=== PATIENT | female | born 1975 | race Caucasian/White ===

== ENCOUNTER 2018-11-02 00:25 | Emergency (ER) | payer SELFPAY ==
[2018-11-02 00:56] VITALS: TEMP 97.5; BMI 35.4
--- NOTE | 2018-11-02 01:28 | PDOC ---
History of Present Illness - General Chief Complaint: Lightheaded Stated Complaint: DIZZINESS,SOB Time Seen by Provider: 11/02/18 00:57 - History of Present Illness Initial Comments: 11/02/18 03:20 43F with no pmh presents to the ED for upper left sided abdominal pain since noon today. The pain is 5/10, goes through the back and is constant, not exacerbated. She also complains of some mild nausea, tried to make herself vomit but couldn't. Never had that kind of pain before. Past History - Past Medical History Allergies/Adverse Reactions: Allergies Allergy/AdvReac Type Severity Reaction Status Date / Time No Known Drug Allergies Allergy Verified 11/11/12 08:03 Home Medications: Ambulatory Orders Acetaminophen [Tylenol .Regular Strength -] 325 mg PO Q3H PRN #2 tablet Benzocaine [Americaine 20% [place] -] 1 spray TP PRN PRN #1 spraybtl 11/15/12 Ferrous Sulfate [Feosol] 325 mg PO BID #0 ud 11/15/12 Ibuprofen [Motrin -] 600 mg PO Q4H PRN #1 tablet 11/15/12 Vitamins (Sjr) - 1 tab PO DAILY #1 tablet 11/15/12 Witch Dorinda 50% (Tucks) [Tucks Pads -] 1 pad TP PRN PRN #1 pad 11/15/12 Asthma: No Cancer: No Cardiac Disorders: No COPD: No Diabetes: No HTN: No Seizures: No Thyroid Disease: No - Suicide/Smoking/Psychosocial Hx Smoking History: Never smoked Have you smoked in the past 12 months: No Hx Alcohol Use: No Drug/Substance Use Hx: No Hx Substance Use Treatment: No Review of Systems - Review of Systems Able to Perform ROS?: Yes Is the patient limited Danish proficient: No Constitutional: No: Symptoms Reported HEENTM: No: Symptoms Reported Respiratory: No: Symptoms reported Cardiac (ROS): No: Symptoms Reported ABD/GI: Yes: See HPI : No: Symptoms Reported Musculoskeletal: No: Symptoms Reported Integumentary: No: Symptoms Reported Neurological: No: Symptoms reported All Other Systems: Reviewed and Negative *Physical Exam - Vital Signs Last Vital Signs Temp Pulse Resp BP Pulse Ox 97.5 F L 55 L 19 105/39 L 98 11/02/18 00:54 11/02/18 00:54 11/02/18 00:54 11/02/18 00:54 11/02/18 00:54 - Physical Exam General Appearance: Yes: Nourished, Appropriately Dressed. No: Apparent Distress HEENT: positive: EOMI, CORKY, Normal ENT Inspection Neck: negative: Tender Respiratory/Chest: positive: Lungs Clear, Normal Breath Sounds. negative: Chest Tender, Respiratory Distress Cardiovascular: positive: Regular Rhythm, S1, S2, Bradycardia Gastrointestinal/Abdominal: positive: Normal Bowel Sounds, Tender (ulq), Flat, Soft, Protuberent. negative: Distended, Rebound, Tenderness, Hernia, Mass Musculoskeletal: positive: Normal Inspection. negative: CVA Tenderness Extremity: positive: Normal Capillary Refill, Normal Inspection, Normal Range of Motion Integumentary: positive: Normal Color, Dry, Warm Neurologic: positive: Fully Oriented, Alert, Normal Mood/Affect, Normal Response , Motor Strength 5/5 Moderate Sedation - Procedure Monitoring Vital Signs: Procedure Monitoring Vital Signs Temperature 97.5 F L 11/02/18 00:54 Pulse Rate 55 L 11/02/18 00:54 Respiratory Rate 19 11/02/18 00:54 Blood Pressure 105/39 L 11/02/18 00:54 O2 Sat by Pulse Oximetry (%) 98 11/02/18 00:54 ED Treatment Course - LABORATORY CBC & Chemistry Diagram: 11/02/18 01:40 11/02/18 01:40 Medical Decision Making - Medical Decision Making 11/02/18 03:37 43F with ULQ pain and nausea since noon today. Gallstones vs constipation vs GA vs pancreatitis vs renal stones US negative for stones. All labs WNL Lipase pending. 11/02/18 05:47 Ct negative for renal stones. Patient feeling better. ok to be dc with PCP follow up *DC/Admit/Observation/Transfer Diagnosis at time of Disposition: Left upper quadrant abdominal tenderness - Discharge Dispostion Disposition: HOME Condition at time of disposition: Improved Decision to Admit order: No - Referrals - Patient Instructions Printed Discharge Instructions: DI for Abdominal Pain-Adult Additional Instructions: Come back to the emergency department for any new, worsening or concerning symptoms. Follow up with your primary care provider within the next 4 days. - Post Discharge Activity
[2018-11-02 02:01] LABS: BASO % 0.7 % (0-2.0); EOS % 1.6 % (0-4.5); HEMATOCRIT 34.7 % (32.4-45.2); HEMOGLOBIN 12.1 GM/dL (10.7-15.3); LYMPH % 23.3 % (8-40); MCH 31.5 pg (25.7-33.7); MCHC 34.8 g/dl (32.0-36.0); MEAN CELL VOLUME 90.4 fl (80-96); MEAN PLT VOLUME 7.6 fl (7.5-11.1); MONO % 6.1 % (3.8-10.2); NEUT % 68.3 % (42.8-82.8); PLATELET COUNT 333 K/MM3 (134-434); RBC 3.84 M/mm3 (3.60-5.2); RDW 13.9 % (11.6-15.6); WHITE BLOOD COUNT 9.6 K/mm3 (4.0-10.0)
[2018-11-02 02:34] LABS: ALBUMIN 3.5 g/dl (3.4-5.0); ALK PHOS 70 U/L (45-117); ANION GAP 7 MMOL/L (8-16); BILIRUBIN,TOTAL 0.2 mg/dL (0.2-1); BLOOD UREA NITROGEN 12 mg/dL (7-18); CALCIUM 8.2 mg/dL (8.5-10.1); CHLORIDE 106 mmol/L (98-107); CO2 26 mmol/L (21-32); CREATININE 0.7 mg/dL (0.55-1.3); GLUCOSE,RANDOM 95 mg/dL (74-106); POTASSIUM 4.5 mmol/L (3.5-5.1); SGOT/AST 23 U/L (15-37); SGPT/ALT 36 U/L (13-61); SODIUM 138 mmol/L (136-145); TOT PROT 7.3 g/dl (6.4-8.2)
--- NOTE | 2018-11-02 03:06 | PDOC ---
Attending Attestation - Resident Resident Name: Trino Briceno - ED Attending Attestation I have performed the following: I have examined & evaluated the patient, The case was reviewed & discussed with the resident, I agree w/resident's findings & plan, Exceptions are as noted - HPI HPI: 11/02/18 04:20 Ms Whittington is a 43 yo F who Presents emergency department with a complaint of abdominal pain, lightheadedness. Her symptoms began while in route to work today at approximately 11:30 AM. She noted sudden onset of left-sided abdominal pain which causes her to be dizzy , feel faint, feel nauseous. Since then her pain has been intermittent. No associated fevers or chills. Patient reports some back pain but says is midline. Prior episodes like this. No trauma to the area. Patient denies dysuria, gross hematuria. She points to the left upper abdomen as painful She had an IUD LMP several months ago Pt is currently sexually active with a single partner, last time 6 weeks ago, no discharge or pelvic pain 11/02/18 05:38 11/02/18 22:56 - Physicial Exam PE: 11/02/18 04:25 GENERAL: The patient is in no acute distress, resting in bed. HEAD: Normal EYES: PERRLA, EOMI, sclera anicteric, conjunctiva clear. ENT: Ears normal, nares patent, oropharynx clear without exudates. Moist mucous membranes. NECK: Normal range of motion, supple LUNGS: Breath sounds equal, clear to auscultation bilaterally. No wheezes, and no crackles. HEART:Regular rate and rhythm, normal S1 and S2 without murmur, rub or gallop. ABDOMEN: Soft, left sided abdominal tenderness, no abd distention, no CVA tenderness EXTREMITIES: Normal range of motion, no edema. NEUROLOGICAL: Cranial nerves II through XII grossly intact. Normal speech. No focal neurological deficits. MUSCULOSKELETAL: Back non-tender to palpation SKIN: Warm, Dry, normal turgor, no rashes or lesions noted. - Medical Decision Making EKG - sinus bradycardia rate of 51 axis nml, no st elevation, t waves upright, twave inversion aVL (no old EKG for comparison) 11/02/18 04:27 Laboratory Tests 11/02/18 11/02/18 11/02/18 01:40 01:40 04:00 WBC 9.6 Hgb 12.1 Hct 34.7 D Plt Count 333 D BUN 12 Creatinine 0.7 Troponin I 0.04 Urine Blood 1+ H Urine Nitrite Negative Ur Leukocyte Esterase 1+ H Micro on UA pending 11/02/18 04:47 Laboratory Tests 11/02/18 04:00 Urine WBC (Auto) 9 Urine RBC (Auto) 8 Ur Epithelial Cells Few Urine Bacteria Rare Will send for spiral CT 11/02/18 05:38 CT: Rectum: Normal Bladder: Normal The inferior thorax: Normal General: Skeletal: Normal Abdominal wall: Normal IMPRESSION: No acute findings 11/02/18 05:39 Pt is resting comfortably Pt presentation is a bit unclear I have had a eyak salvadorean speaking nurse speak with this patient There are no changes to the history previously recorded Spiral CT negative Will repeat vital signs Will discharge to home Clinical Impression: Abdominal pain, initial presentation 11/02/18 22:54
[2018-11-02 03:19] VITALS: BP 107/42; PULSE 65
[2018-11-02 04:14] LABS: URINE APPEARANCE SLCLOUDY; URINE BILIRUBIN NEGATIVE (<2.0 mg/dL); URINE COLOR YELLOW; URINE GLUCOSE (UA) NEGATIVE (NEGATIVE); URINE KETONE NEGATIVE (NEGATIVE); URINE LEUK ESTERASE 1+ (NEGATIVE); URINE NITRITE NEGATIVE (NEGATIVE); URINE PROTEIN NEGATIVE (NEGATIVE); URINE UROBILINOGEN NEGATIVE mg/dL (0.2-1.0)
[2018-11-02 04:28] LABS: EPI CELLS FEW /HPF (FEW); URINE BACTERIA RARE /hpf (NONE SEEN); URINE HYALINE CAST 3 /lpf; URINE MUCUS MANY
--- NOTE | 2018-11-02 17:01 | EKG ---
Test Reason : Blood Pressure : / mmHG Vent. Rate : 051 BPM Atrial Rate : 051 BPM P-R Int : 180 ms QRS Dur : 084 ms QT Int : 460 ms P-R-T Axes : 041 050 061 degrees QTc Int : 423 ms SINUS BRADYCARDIA OTHERWISE NORMAL ECG Confirmed by MD LINDSAY, ERNESTO ([id number]) on 11/02/2018 5:01:23 PM Referred By: Confirmed By:ERNESTO MONTOYA MD
== END 2018-11-02 06:15 | disposition home or self-care (01) ==
LOC: JER 00:25
DX: R10.812 Left upper quadrant abdominal tenderness (principal)
CPT/HCPCS: 36415; 74176; 76705-TC; 80053; 81003; 81015; 83690; 84484; 84703; 85025; 87086; 93005; 93010; 99282-25

== ENCOUNTER 2019-09-01 13:45 | Emergency (ER) | payer OTHER ==
[2019-09-01 13:54] VITALS: BP 102/56; PULSE 62; TEMP 97.8; BMI 106.3
--- NOTE | 2019-09-01 14:36 | PDOC ---
History of Present Illness - General History Source: Patient Exam Limitations: No Limitations - History of Present Illness Initial Comments: 09/01/19 14:36 44 yo F w/ a h/o HLD (not on meds) comes in c/o sudden onset of L sided neck pain with L upper extremity pain, numbness/tingling/weakness since yesterday with shortness of breath with ambulation. She has also had L sided chest pain with radiates to the back , L sided facial numbness since Thursday. No slurred speech, no lower extremity weakness, no other complaints today, no prior h/o similar symptoms. 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 No fever/chills, no NVD, no change in appetite/urination, no prior h/o similar symptoms. Denies recent fall/trauma. (+) has a PMD, last saw him 1 yr ago and was told she had high cholesterol but not on meds. Denies h/o PE/DVT, no smoking, no OCP use, no recent surgery, no recent prolonged period of immobilization. no h/o malignancy. no hemoptysis <Katie Hines - Last Filed: 09/01/19 16:05> <Rosa Cabrera - Last Filed: 09/01/19 17:36> - General Chief Complaint: Pain, Acute Stated Complaint: SHOULDER/ARM PAIN Time Seen by Provider: 09/01/19 14:15 Past History - Past Medical History Asthma: No Cancer: No Cardiac Disorders: No COPD: No Diabetes: No HTN: No Seizures: No Thyroid Disease: No - Psycho Social/Smoking Cessation Hx Smoking History: Never smoked Have you smoked in the past 12 months: No Information on smoking cessation initiated: No Hx Alcohol Use: No Drug/Substance Use Hx: No Hx Substance Use Treatment: No <Katie Hines - Last Filed: 09/01/19 16:05> <Rosa Cabrera - Last Filed: 09/01/19 17:36> - Past Medical History Allergies/Adverse Reactions: Allergies Allergy/AdvReac Type Severity Reaction Status Date / Time No Known Drug Allergies Allergy Verified 11/11/12 08:03 Home Medications: Ambulatory Orders Methocarbamol [Robaxin-750] 1,500 mg PO Q6H PRN #24 tablet 09/01/19 Review of Systems - Review of Systems Able to Perform ROS?: Yes Constitutional: No: Chills, Fever, Malaise, Night Sweats HEENTM: No: Eye Pain, Recent change in vision, Throat Pain Respiratory: Yes: Shortness of Breath. No: Cough Cardiac (ROS): Yes: Chest Pain. No: Palpitations, Chest Tightness ABD/GI: No: Diarrhea, Nausea, Vomiting, Abdominal cramping : No: Dysuria, Hematuria Musculoskeletal: No: Back Pain Integumentary: No: Rash Neurological: Yes: Numbness. No: Headache, Dizziness Psychiatric: No: Change in Appetite Endocrine: No: Unexplained Weight Loss <DonnyElliKatie - Last Filed: 09/01/19 16:05> *Physical Exam - Vital Signs Last Vital Signs Temp Pulse Resp BP Pulse Ox 97.8 F 62 16 102/56 L 97 09/01/19 13:50 09/01/19 13:50 09/01/19 13:50 09/01/19 13:50 09/01/19 13:50 - Physical Exam General Appearance: Yes: Nourished. No: Apparent Distress HEENT: positive: CORKY, Normal ENT Inspection, Normal Voice. negative: Pale Conjunctivae, Scleral Icterus (R), Scleral Icterus (L), TM Bulging, TM Dull, TM Erythema, Lesions (no vesicles on TMs b/l) Neck: positive: Supple. negative: Decreased range of motion, Tender midline ((+ )L paraspinal muscular tenderness. NO skin changes) Respiratory/Chest: positive: Chest Tender (mid-L parasternal), Lungs Clear, Normal Breath Sounds. negative: Respiratory Distress, Accessory Muscle Use Cardiovascular: positive: Regular Rhythm, Regular Rate Comments:: 09/01/19 14:52 Neuro exam: A+Ox3 (person, place, time) Visual ge: full to confrontation. Pupils: equal, round, and reactive to light. EOM: intact and smooth pursuit. No nystagmus. Sensation: subjective numbess L side face along V1, V2, V3 Facial strength: muscles of mastication, facial expression, shoulder shrug, and head turn normal. Hearing: grossly intact b/l Mouth: tongue protrudes midline and moves Left/Right equal b/l. Uvula rises symmetrically. Motor: L hand weaker health practice manager than RUE, otherwise 5/.5 strength upper arm, forearm and ower extremities. Sensation: light touch and pinprick WNL upper and lower extremities Cerebellum: [id number] normal without dysmetria or intention tremor. [id number] wnl. No dysdiadodyskinesia. Gait: unassisted, steady, Romberg negative. No atalgia, difficulty in ambulation or ataxia. 09/01/19 14:57 Gastrointestinal/Abdominal: positive: Normal Bowel Sounds, Soft. negative: Tender Musculoskeletal: positive: Normal Inspection. negative: CVA Tenderness, Decreased Range of Motion Extremity: positive: Normal Capillary Refill, Normal Inspection, Normal Range of Motion, Tender (L trapezius muscles). negative: Delayed Capillary Refill, Pedal Edema, Swelling, Calf Tenderness, Erythema Integumentary: positive: Normal Color, Dry. negative: Jaundice, Rash <Katie Hines - Last Filed: 09/01/19 16:05> - Vital Signs Last Vital Signs Temp Pulse Resp BP Pulse Ox 97.8 F 62 16 102/56 L 99 09/01/19 13:50 09/01/19 13:50 09/01/19 13:50 09/01/19 13:50 09/01/19 14:59 <Rosa Cabrera - Last Filed: 09/01/19 17:36> Heart Score/ECG Review - History History: Slightly suspicious - Age Age: </= 47 - Risk Factors Risk Factors Heart Score: Yes Hx Hypercholesterolemia Based on the list above the patient has:: 1-2 risk factors <Katie Hines - Last Filed: 09/01/19 16:05> ED Treatment Course - LABORATORY CBC & Chemistry Diagram: 09/01/19 15:17 09/01/19 15:17 <Katie Hines - Last Filed: 09/01/19 16:05> - LABORATORY CBC & Chemistry Diagram: 09/01/19 15:17 09/01/19 15:17 - ADDITIONAL ORDERS Additional order review: Laboratory Results 09/01/19 09/01/19 09/01/19 15:27 15:17 15:17 Sodium 138 Potassium 4.2 Chloride 104 Carbon Dioxide 26 Anion Gap 7 L BUN 17.9 Creatinine 0.7 Est GFR (CKD-EPI)AfAm 123.86 Est GFR (CKD-EPI)NonAf 106.87 POC Glucometer Random Glucose 88 Calcium 8.9 Phosphorus 4.3 Magnesium 2.2 Total Bilirubin 0.3 AST 41 H ALT 71 H Alkaline Phosphatase 73 Creatine Kinase 187 Troponin I < 0.02 Total Protein 7.5 Albumin 3.8 Lipase 124 Beta HCG, Quant < 1.0 Urine HCG, Qual Negative 09/01/19 14:57 Sodium Potassium Chloride Carbon Dioxide Anion Gap BUN Creatinine Est GFR (CKD-EPI)AfAm Est GFR (CKD-EPI)NonAf POC Glucometer 86 Random Glucose Calcium Phosphorus Magnesium Total Bilirubin AST ALT Alkaline Phosphatase Creatine Kinase Troponin I Total Protein Albumin Lipase Beta HCG, Quant Urine HCG, Qual 09/01/19 09/01/19 15:17 14:57 RBC 3.86 MCV 90.7 MCHC 34.2 RDW 13.9 MPV 7.8 Neutrophils % 66.9 Lymphocytes % 24.4 Monocytes % 6.3 Eosinophils % 1.7 Basophils % 0.7 POC Glucometer 86 - Medications Given in the ED: ED Medications Discontinued Medications Generic Name Dose Route Start Last Admin Trade Name Freq PRN Reason Stop Dose Admin Ibuprofen 600 mg 09/01/19 15:06 09/01/19 15:22 Motrin - PO 09/01/19 15:07 600 mg ONCE ONE Administration Methocarbamol 1,000 mg 09/01/19 15:07 09/01/19 15:22 Robaxin - PO 09/01/19 15:08 1,000 mg ONCE ONE Administration <Rosa Cabrera - Last Filed: 09/01/19 17:36> Medical Decision Making - Medical Decision Making 09/01/19 14:57 44 yo F w/ HLD p/w 6 days of L sided chest pain (reproducible), 2 days of L arm numbness/pain, L face numbness with dyspnea on exertion. R/O radiculopathy, neuropathic pain. WIll also do a cardiac work up. Will do an EKG, line and lab, check cardiac enzymes, CXR, give motrin, robaxin and reassess 09/01/19 15:57 Change of shift, care of patient signed over to MAT Yarbrough who will follow up labs, CXR, reassess and decide on dispo plan Case discussed with Dr. Cabrera. 09/01/19 16:05 <Katie Hines - Last Filed: 09/01/19 16:05> - Medical Decision Making 09/01/19 15:59 The patient was seen and evaluated in conjunction with midlevel provider under my direct supervision, ancillary studies were reviewed. I agree with the plan as outlined MAT Hines. HPI, workup/dispo as outlined. VS reviewed, wnl. EKG is sinus rhythm at 68 bpm, no ST T wave derangements. labs unremarkable, neg trop. neuro intact meds given, analgesia. anticipate discharge, pcp followup, return precautions <Rosa Cabrera - Last Filed: 09/01/19 17:36> Discharge - Discharge Information Problems reviewed: Yes <Katie Hines - Last Filed: 09/01/19 16:05> <Rosa Cabrera - Last Filed: 09/01/19 17:36> - Discharge Information Clinical Impression/Diagnosis: Chest pain Qualifiers: Chest pain type: unspecified Qualified Code(s): R07.9 - Chest pain, unspecified Condition: Improved Disposition: HOME - Additional Discharge Information Prescriptions: Methocarbamol [Robaxin-750] 1,500 mg PO Q6H PRN #24 tablet PRN Reason: Muscle Spasms - Patient Discharge Instructions Patient Printed Discharge Instructions: DI for Chest Pain Additional Instructions: Thank you for choosing [facility]. It was a pleasure taking care of you. You may take Motrin 600 mg every 6 hours by mouth as needed for mild to moderate pain. Take Motrin with food. Take Robaxin as needed for muscle spams. This medication can also make you drowsy so please be cautious with driving or performing heavy physical work. You may also try warm compresses Please follow-up with your doctor in 2 days for further evaluation Return to the Emergency Department if your symptoms worsen or persist or have other concerning symptoms. Andres por elegir el [facility]. Fue un placer cuidar de ti. Puede joanne Motrin 600 mg cada 6 horas por va oral segn sea necesario para el dolor leve a moderado. Jackie Motrin con comida. [place] Robaxin segn sea necesario para los espasmos musculares. Demi medicamento tambin puede causar somnolencia, as que tenga cuidado al conducir o realizar trabajos fsicos pesados. Tambin puedes probar compresas calientes Hola un seguimiento con davis mdico en 2 beltre para ava evaluacin adicional. Regrese al departamento de emergencias si monica sntomas empeoran o persisten o si tiene otros sntomas preocupantes. Print Language: SINHALA
[2019-09-01] MEDS ORDERED: IBUPROFEN 600 MG TABLET (FP) PO ONE ×2 (15:06→15:18)
[2019-09-01] MEDS ORDERED: METHOCARBAMOL 500 MG TABLET PO ONE (15:07)
[2019-09-01] MEDS ORDERED: METHOCARBAMOL 500 MG TABLET ONE (15:18)
[2019-09-01 15:32] LABS: BASO % 0.7 % (0-2.0); EOS % 1.7 % (0-4.5); LYMPH % 24.4 % (8-40); MCHC 34.2 g/dl (32.0-36.0); MEAN CELL VOLUME 90.7 fl (80-96); MEAN PLT VOLUME 7.8 fl (7.5-11.1); MONO % 6.3 % (3.8-10.2); NEUT % 66.9 % (42.8-82.8); PLATELET COUNT 315 K/MM3 (134-434); RBC 3.86 M/mm3 (3.60-5.2); RDW 13.9 % (11.6-15.6); WHITE BLOOD COUNT 9.5 K/mm3 (4.0-10.0)
[2019-09-01 15:57] LABS: ALBUMIN 3.8 g/dl (3.4-5.0); ALK PHOS 73 U/L (45-117); ANION GAP 7 MMOL/L (8-16); BILIRUBIN,TOTAL 0.3 mg/dL (0.2-1); BLOOD UREA NITROGEN 17.9 mg/dL (7-18); CALCIUM 8.9 mg/dL (8.5-10.1); CHLORIDE 104 mmol/L (98-107); CO2 26 mmol/L (21-32); CREATININE 0.7 mg/dL (0.55-1.3); GLUCOSE,RANDOM 88 mg/dL (74-106); LIPASE 124 U/L (73-393); MAGNESIUM 2.2 mg/dL (1.8-2.4); PHOSPHOROUS 4.3 mg/dL (2.5-4.9); POTASSIUM 4.2 mmol/L (3.5-5.1); SGOT/AST 41 U/L (15-37); SGPT/ALT 71 U/L (13-61); SODIUM 138 mmol/L (136-145); TOT PROT 7.5 g/dl (6.4-8.2)
--- NOTE | 2019-09-01 17:12 | PDOC ---
*Physical Exam - Vital Signs Last Vital Signs Temp Pulse Resp BP Pulse Ox 97.8 F 62 16 102/56 L 99 09/01/19 13:50 09/01/19 13:50 09/01/19 13:50 09/01/19 13:50 09/01/19 14:59 <Kenna Yarbrough - Last Filed: 09/01/19 17:12> - Vital Signs Last Vital Signs Temp Pulse Resp BP Pulse Ox 97.8 F 62 16 102/56 L 99 09/01/19 13:50 09/01/19 13:50 09/01/19 13:50 09/01/19 13:50 09/01/19 14:59 <Rosa Cabrera - Last Filed: 09/02/19 22:10> Heart Score/ECG Review - History History: Slightly suspicious - Electrocardiogram EKG: Normal - Age Age: </= 47 - Risk Factors Risk Factors Heart Score: Yes Hx Hypercholesterolemia Based on the list above the patient has:: 1-2 risk factors - Troponin Troponin: </= normal limit - Score Heart Score - Total: 1 <Kenna Yarbrough - Last Filed: 09/01/19 17:12> ED Treatment Course - LABORATORY CBC & Chemistry Diagram: 09/01/19 15:17 09/01/19 15:17 - ADDITIONAL ORDERS Additional order review: Laboratory Results 09/01/19 09/01/19 09/01/19 15:27 15:17 15:17 Sodium 138 Potassium 4.2 Chloride 104 Carbon Dioxide 26 Anion Gap 7 L BUN 17.9 Creatinine 0.7 Est GFR (CKD-EPI)AfAm 123.86 Est GFR (CKD-EPI)NonAf 106.87 POC Glucometer Random Glucose 88 Calcium 8.9 Phosphorus 4.3 Magnesium 2.2 Total Bilirubin 0.3 AST 41 H ALT 71 H Alkaline Phosphatase 73 Creatine Kinase 187 Creatine Kinase Index 0.8 CK-MB (CK-2) 1.6 Troponin I < 0.02 Total Protein 7.5 Albumin 3.8 Lipase 124 Beta HCG, Quant < 1.0 Urine HCG, Qual Negative 09/01/19 14:57 Sodium Potassium Chloride Carbon Dioxide Anion Gap BUN Creatinine Est GFR (CKD-EPI)AfAm Est GFR (CKD-EPI)NonAf POC Glucometer 86 Random Glucose Calcium Phosphorus Magnesium Total Bilirubin AST ALT Alkaline Phosphatase Creatine Kinase Creatine Kinase Index CK-MB (CK-2) Troponin I Total Protein Albumin Lipase Beta HCG, Quant Urine HCG, Qual 09/01/19 09/01/19 15:17 14:57 RBC 3.86 MCV 90.7 MCHC 34.2 RDW 13.9 MPV 7.8 Neutrophils % 66.9 Lymphocytes % 24.4 Monocytes % 6.3 Eosinophils % 1.7 Basophils % 0.7 POC Glucometer 86 - Medications Given in the ED: ED Medications Discontinued Medications Generic Name Dose Route Start Last Admin Trade Name Freq PRN Reason Stop Dose Admin Ibuprofen 600 mg 09/01/19 15:06 09/01/19 15:22 Motrin - PO 09/01/19 15:07 600 mg ONCE ONE Administration Methocarbamol 1,000 mg 09/01/19 15:07 09/01/19 15:22 Robaxin - PO 09/01/19 15:08 1,000 mg ONCE ONE Administration <Kenna Yarbrough - Last Filed: 09/01/19 17:12> - LABORATORY CBC & Chemistry Diagram: 09/01/19 15:17 09/01/19 15:17 - ADDITIONAL ORDERS Additional order review: 09/01/19 09/01/19 15:17 14:57 RBC 3.86 MCV 90.7 MCHC 34.2 RDW 13.9 MPV 7.8 Neutrophils % 66.9 Lymphocytes % 24.4 Monocytes % 6.3 Eosinophils % 1.7 Basophils % 0.7 POC Glucometer 86 - Medications Given in the ED: ED Medications Discontinued Medications Generic Name Dose Route Start Last Admin Trade Name Freq PRN Reason Stop Dose Admin Ibuprofen 600 mg 09/01/19 15:06 09/01/19 15:22 Motrin - PO 09/01/19 15:07 600 mg ONCE ONE Administration Methocarbamol 1,000 mg 09/01/19 15:07 09/01/19 15:22 Robaxin - PO 09/01/19 15:08 1,000 mg ONCE ONE Administration <Rosa Cabrera - Last Filed: 09/02/19 22:10> Medical Decision Making - Medical Decision Making Patient signed out to me by MAT Hines Patient labs unremarkable CXR negative Patient feeling better after getting motrin and robaxin HS is 1 stable for d/c with PCP f/u 09/01/19 17:08 <Kenna Yarbrough - Last Filed: 09/01/19 17:12> - Medical Decision Making The patient was seen and evaluated in conjunction with midlevel provider under my direct supervision, ancillary studies were reviewed. I agree with the plan as outlined MAT Yarbrough. HPI, workup/dispo as outlined. VS reviewed, wnl. anticipate discharge, pcp followup, return precautions 09/02/19 22:09 <Rosa Cabrera - Last Filed: 09/02/19 22:10> Discharge - Discharge Information Problems reviewed: Yes - Admission No - Additional Discharge Information Prescription Drug Monitoring Program (I-STOP) results: I-STOP not reviewed <Kenna Yarbrough - Last Filed: 09/01/19 17:12> <Rosa Cabrera - Last Filed: 09/02/19 22:10> - Discharge Information Clinical Impression/Diagnosis: Chest pain Qualifiers: Chest pain type: unspecified Qualified Code(s): R07.9 - Chest pain, unspecified Condition: Improved Disposition: HOME - Additional Discharge Information Prescriptions: Methocarbamol [Robaxin-750] 1,500 mg PO Q6H PRN #24 tablet PRN Reason: Muscle Spasms - Patient Discharge Instructions Patient Printed Discharge Instructions: DI for Chest Pain Additional Instructions: Thank you for choosing [facility]. It was a pleasure taking care of you. You may take Motrin 600 mg every 6 hours by mouth as needed for mild to moderate pain. Take Motrin with food. Take Robaxin as needed for muscle spams. This medication can also make you drowsy so please be cautious with driving or performing heavy physical work. You may also try warm compresses Please follow-up with your doctor in 2 days for further evaluation Return to the Emergency Department if your symptoms worsen or persist or have other concerning symptoms. Andres por elegir el [facility]. Fue un placer cuidar de ti. Puede joanne Motrin 600 mg cada 6 horas por va oral segn sea necesario para el dolor leve a moderado. Jackie Motrin con comida. [place] Robaxin segn sea necesario para los espasmos musculares. Demi medicamento tambin puede causar somnolencia, as que tenga cuidado al conducir o realizar trabajos fsicos pesados. Tambin puedes probar compresas calientes Hola un seguimiento con davis mdico en 2 beltre para ava evaluacin adicional. Regrese al departamento de emergencias si monica sntomas empeoran o persisten o si tiene otros sntomas preocupantes. Print Language: WELSH
--- NOTE | 2019-09-01 21:22 | EKG ---
Test Reason : Blood Pressure : / mmHG Vent. Rate : 058 BPM Atrial Rate : 058 BPM P-R Int : 160 ms QRS Dur : 076 ms QT Int : 412 ms P-R-T Axes : 041 054 078 degrees QTc Int : 404 ms SINUS BRADYCARDIA NONSPECIFIC T WAVE ABNORMALITY ABNORMAL ECG WHEN COMPARED WITH ECG OF 02-NOV-2018 02:04, NO SIGNIFICANT CHANGE WAS FOUND Confirmed by STEVE URENA MD ([id number]) on 09/01/2019 9:22:01 PM Referred By: Confirmed By:STEVE URENA MD
== END 2019-09-01 18:11 | disposition home or self-care (01) ==
LOC: JER 13:45 → JERFT 13:45 → JER 18:11
DX: R07.9 Chest pain, unspecified (principal); E78.00 Pure hypercholesterolemia, unspecified
CPT/HCPCS: 36415; 71046-TC-FY; 80053; 82550; 82553; 82962; 83690; 83735; 84100; 84484; 84702; 84703; 85025; 93005; 93010; 99284-25

== ENCOUNTER 2020-10-09 16:38 | Emergency (ER) | payer OTHER ==
[2020-10-09 17:09] VITALS: BMI 45.0
[2020-10-09 18:16] LABS: BASO % 0.5 % (0-2.0); EOS % 2.2 % (0-4.5); HEMATOCRIT 33.3 % (32.4-45.2); LYMPH % 25.7 % (8-40); MCH 29.8 pg (25.7-33.7); MCHC 33.1 g/dl (32.0-36.0); MEAN CELL VOLUME 89.9 fl (80-96); MEAN PLT VOLUME 7.8 fl (7.5-11.1); MONO % 5.7 % (3.8-10.2); NEUT % 65.9 % (42.8-82.8); PLATELET COUNT 312 K/MM3 (134-434); RDW 14.2 % (11.6-15.6); WHITE BLOOD COUNT 9.5 K/mm3 (4.0-10.0)
[2020-10-09 18:44] LABS: POTASSIUM 4.1 mmol/L (3.5-5.1)
[2020-10-09] MEDS: ACETAMINOPHEN 325 MG TABLET (FP) PO ONE ×2 (18:45→18:48)
[2020-10-09 18:46] LABS: BLOOD UREA NITROGEN 11.9 mg/dL (7-18); CALCIUM 8.8 mg/dL (8.5-10.1)
[2020-10-09] MEDS ORDERED: ACETAMINOPHEN 325 MG TABLET (FP) ONE (18:46)
[2020-10-09 18:50] LABS: CREATININE 0.6 mg/dL (0.55-1.3)
[2020-10-09 20:02] LABS: EPI CELLS 4 /uL (0-25.1); HYALINE CASTS 0 /uL (0-3.1); URINE APPEARANCE CLOUDY; URINE BACTERIA 29 /uL (0-1359); URINE BILIRUBIN NEGATIVE (NEGATIVE); URINE COLOR YELLOW; URINE GLUCOSE (UA) NEGATIVE (NEGATIVE); URINE KETONE NEGATIVE (NEGATIVE); URINE LEUK ESTERASE NEGATIVE (NEGATIVE); URINE NITRITE NEGATIVE (NEGATIVE); URINE PROTEIN NEGATIVE (NEGATIVE); URINE RBC 162 /uL (0-23.9); URINE UROBILINOGEN 0.2 mg/dL (0.2-1.0); URINE WBC 2 /uL (0-25.8)
[2020-10-09 21:16] VITALS: BP 124/47; PULSE 69; TEMP 98
== END 2020-10-09 21:18 | disposition home or self-care (01) ==
LOC: JER 16:38
DX: O26.851 Spotting complicating pregnancy, first trimester (principal); O20.0 Threatened abortion; Z3A.08 8 weeks gestation of pregnancy
CPT/HCPCS: 36415; 76817-TC; 80048; 81003; 84702; 85025; 86850; 86900; 86901; 87070; 87086; 87205; 99284-25

== ENCOUNTER 2020-10-11 15:10 | Emergency (ER) | payer OTHER ==
[2020-10-11 15:23] VITALS: BP 113/40; PULSE 73; TEMP 98; BMI 36.6
[2020-10-11] MEDS ORDERED: ACETAMINOPHEN 325 MG TABLET (FP) PO ONE (16:07)
[2020-10-11] MEDS ORDERED: ACETAMINOPHEN 325 MG TABLET (FP) ONE (16:12)
== END 2020-10-11 17:29 | disposition home or self-care (01) ==
LOC: JER 15:10
DX: O26.851 Spotting complicating pregnancy, first trimester (principal); O03.9 Complete or unspecified spontaneous abortion without complication; Z3A.01 Less than 8 weeks gestation of pregnancy
CPT/HCPCS: 36415; 84702; 99283-25

== ENCOUNTER 2021-10-21 19:19 | Emergency (ER) | payer OTHER ==
[2021-10-21 19:32] VITALS: BP 118/78; PULSE 71; TEMP 97.6; BMI 40.2
[2021-10-21] MEDS ORDERED: ERYTHROMYCIN 0.5% OPHTHALMIC OINTMENT 3.5 GM TUBE OD ONE (22:20)
[2021-10-21] MEDS ORDERED: IBUPROFEN 600 MG TABLET (FP) PO ONE ×2 (22:20→22:23)
[2021-10-21] MEDS ORDERED: ERYTHROMYCIN 0.5% OPHTHALMIC OINTMENT 3.5 GM TUBE ONE (22:22)
== END 2021-10-21 22:33 | disposition home or self-care (01) ==
LOC: JERFT 19:19
DX: H00.014 Hordeolum externum left upper eyelid (principal); J06.9 Acute upper respiratory infection, unspecified; Z11.52 Encounter for screening for COVID-19
CPT/HCPCS: 99283-25; C9803; U0003; U0005

== ENCOUNTER 2023-05-12 05:07 | Day surgery (SDC) | payer OTHER ==
[2023-05-11 12:22] VITALS: BMI 39.6
[2023-05-12 12:57] VITALS: TEMP 98
[2023-05-12 13:34] VITALS: BP 128/60; PULSE 59; RESP 19
== END 2023-05-12 13:40 | disposition home or self-care (01) ==
LOC: JASU-ENDO 05:07
PROVIDERS: ATTEND Student in an Organized Health Care Education/Training Program
PROC: 0DBL8ZX Excision of Transverse Colon, Via Natural or Artificial Opening Endoscopic, Diagnostic (ICD-10-PCS; principal; 2023-05-12 11:00)
DX: K63.5 Polyp of colon (principal); K57.30 Diverticulosis of large intestine without perforation or abscess without bleeding; K64.8 Other hemorrhoids; Z87.19 Personal history of other diseases of the digestive system
CPT/HCPCS: 81025; 88305-TC